=== PATIENT | female | born 2000 | race Caucasian/White ===

== ENCOUNTER → 2020-07-21 18:22 | Outpatient (CLI) | payer MEDICAID, SELFPAY ==
[2020-07-21 18:48] LABS: Basophils # 0.1 K/mm3 (0-0.2); Basophils % 0.6 % (0.1-2.0); Eosinophils # 0.1 K/mm3 (0.0-0.4); Eosinophils % 0.7 % (0.1-12.0); Hematocrit 40.5 % (37.0-47.0); Hemoglobin 13.1 g/dL (12.2-16.2); Lymphocytes # 2.8 K/mm3 (0.7-4.5); Lymphocytes % 24.8 % (10-50); Mean Corpuscular HGB Conc 32.3 g/dL (31.8-35.4); Mean Corpuscular Hemoglobin 26.8 pg (27.0-31.2); Mean Platelet Volume 7.7 fl (7.4-10.4); Monocytes # 0.7 K/mm3 (0.1-1.0); Neutrophils # 7.8 K/mm3 (1.8-7.8); Neutrophils % 67.9 % (37.0-80.0); Platelet Count 423 K/mm3 (142-424); Red Blood Count 4.88 M/mm3 (4.20-5.40); Red Cell Distribution Width 13.3 % (11.5-17.5); White Blood Count 11.4 K/mm3 (4.5-13.0)
[2020-07-21 19:11] LABS: 25-OH Vitamin D, Total 16.8 ng/mL (30-100)
[2020-07-21 19:12] LABS: Free T4 (Free Thyroxine) 1.04 ng/dl (0.78-2.19)
[2020-07-21 20:04] LABS: Alanine Aminotransferase 17 U/L (12-78); Albumin Level 4.6 g/dl (3.5-5.0); Albumin/Globulin Ratio 1.3 (1.1-1.8); Alkaline Phosphatase 87 U/L (38-126); Anion Gap 11.5 mEq/L (5-15); Aspartate Amino Transferase 27 U/L (14-36); Bilirubin,Total 0.6 mg/dl (0.2-1.3); Blood Urea Nitrogen 15 mg/dl (7-17); Calcium 9.8 mg/dl (8.4-10.2); Carbon Dioxide 28 mmol/L (22.0-30.0); Chloride 104 mmol/L (98-107); Chol/HDL Ratio 4.3 (1-3.5); Cholesterol 172 mg/dl (140-200); Estimated Glomerular Filt Rate 129 ml/min (>60); GFR (African American) 156 ML/MIN (>60); Globulin 3.5 g/dL (1.3-3.2); Glucose 90 mg/dl (74-100); HDL Cholesterol 40 mg/dl (40-60); Potassium 4.5 mmoL/L (3.5-5.1); Sodium 139 mmol/L (136-145); Total Protein,Serum 8.1 g/dl (6.3-8.2); Triglycerides 119 mg/dl (30-150); VLDL Cholesterol 24 mg/dL (0-40)
[2020-07-21 20:15] LABS: Direct LDL Cholesterol 97.19 mg/dL (100-129)
[2020-07-21 20:35] LABS: Thyroid Stimulating Hormone 1.81 uIU/mL (0.465-4.68)
== END ==
PROVIDERS: Visit Provider Emergency Medicine
DX: Z00.00 Encounter for general adult medical examination without abnormal findings (principal); E66.01 Morbid (severe) obesity due to excess calories; N91.2 Amenorrhea, unspecified; Z68.43 Body mass index [BMI] 50.0-59.9, adult; Z83.3 Family history of diabetes mellitus; E55.9 Vitamin D deficiency, unspecified
CPT/HCPCS: 80053; 80061; 82306; 83036; 84439; 84443; 85025

== ENCOUNTER 2020-07-21 23:50 | Emergency (ER) | payer MEDICAID, SELFPAY ==
[2020-07-21 23:51] VITALS: BP 125/75; PULSE 102; RESP 16; TEMP 37.2; O2SAT 98; BMI 52.6
--- NOTE | 2020-07-22 00:04 | HMH.EDHA ---
ED Disposition Clinical Impression: Headache Qualifiers: Headache type: tension-type Headache chronicity pattern: acute headache Intractability: not intractable Qualified Code(s): G44.209 - Tension-type headache, unspecified, not intractable Disposition: Home, Self-Care Condition on Discharge: Good Instructions: DI for Headache Additional Instructions: Return to the ED for any new or worsening symptoms including persistent vomiting, weakness, difficulty walking. Referrals: Benito Robins MD [Primary Care Provider] - Time of Disposition: :20 - Critical Care Critical Care Time: No Attestation: On , the high probability of a clinically significant, sudden or life threatening deterioration of the following system(s) required my full and direct attention, intervention and personal management. The time I documented below is in addition to time spent performing reported procedures but includes the following listed in this critical care notation. Medical Decision Making - Medical Records Medical records reviewed: Yes: I reviewed the patient's medical records. - Juan M Inquiry Pt receiving controlled substance: No Vital Signs: 07/21/20 23:51 Temperature 99.0 F Temperature Source Oral Pulse Rate [Left Radial] 102 H Respiratory Rate 16 Blood Pressure [Right Arm] 125/75 Blood Pressure Mean [Right Arm] 91 Blood Pressure Source [Right Arm] Automatic Cuff Blood Pressure Position [Right Arm] Supine 02 Sat by Pulse Oximetry 98 Oxygen Delivery Method Room Air - Lab Data Lab Results 07/22/20 00:05: Urine Color Yellow, Urine Appearance Sl cloudy, Urine pH 6.5, Ur Specific Butterfield 1.025, Urine Protein Negative, Urine Glucose (UA) Negative, Urine Ketones Negative, Urine Blood Negative, Urine Nitrate Negative, Urine Bilirubin Negative, Urine Urobilinogen 0.2, Ur Leukocyte Esterase Negative, Urine WBC 3-5, Ur Squamous Epith Cells 10-20 07/22/20 00:05: Urine HCG, Qual Negative Orders (Tests/Meds): ED MEDICATIONS Generic Name Dose Route Start Last Admin Trade Name Freq PRN Reason Stop Dose Admin Lactated Ringer's 1,000 mls @ 999 mls/hr 07/22/20 00:15 07/22/20 00:28 Lactated Ringer's 1000 Ml Bag IV 07/22/20 01:15 999 mls/hr .Q1H1M WILLIAM Administration Discontinued Medications Generic Name Dose Route Start Last Admin Trade Name Freq PRN Reason Stop Dose Admin Diphenhydramine HCl 25 mg 07/22/20 00:07 07/22/20 00:28 Diphenhydramine 50mg/Ml Vial IV 07/22/20 00:08 25 mg ONCE ONE Administration Ketorolac Tromethamine 30 mg 07/22/20 00:07 07/22/20 00:28 Ketorolac 30mg/Ml Vial IV 07/22/20 00:08 30 mg ONCE ONE Administration Prochlorperazine Edisylate 10 mg 07/22/20 00:07 07/22/20 00:28 Prochlorperazine 10mg/2ml Vial IV 07/22/20 00:08 10 mg ONCE ONE Administration Medical Decision Narrative: 19-year-old female with a history of headaches who presents with a frontal headache for the past several hours of gradual onset. With an additional complaint of weakness will be evaluated for urinalysis to rule out urinary tract infection. No concern for meningitis or subarachnoid hemorrhage based on history and exam. Nonfocal neurologic exam. She will be given a migraine cocktail including 10 mg IV Compazine, 30 mg IV Toradol, 25 mg IV Benadryl and IV fluid bolus 1 L. Following these interventions she was reevaluated with resolution of symptoms feeling much better and ready to go home. She was given appropriate return precautions and discharged in good condition. Headache HPI - General Chief Complaint: Headache Stated Complaint: Weakness and Headache Time Seen by Provider: 07/21/20 23:55 Mode of Arrival: Ambulatory Source of Information: Patient Limitations: No Limitations - History of Present Illness HPI Narrative: 19-year-old female who presents with frontal headache that started over the last few hours and has been constant moderate severity with sensitivity to lig
--- NOTE | 2020-07-22 00:08 | PC.NURSE ---
vision : Rt at 10 ft - 20/40 Lt at 10ft - 20/40 Both at 10 ft - 20/30
[2020-07-22 00:21] VITALS: BP 123/75; PULSE 73; RESP 16; O2SAT 98
[2020-07-22 00:22] LABS: Microscopic, Urine URINE MICROSCOPIC (MICROSCOPIC)
[2020-07-22 00:27] LABS: Appearance,Urine SL CLOUDY (Clear); Bilirubin,Urine Negative (Negative); Blood, Urine Negative (Negative); Color,Urine YELLOW (Yellow); Glucose,Urine (UA) Negative (Negative); Ketones,Urine Negative (Negative); Leukocyte Esterase,Urine Negative (Negative); Nitrate,Urine Negative (Negative); PH,Urine 6.5 (5.0-8.5); Protein,Urine Negative (Negative); Specific Gravity, Urine 1.025 (1.005-1.030); Urobilinogen,Urine 0.2 EU/dl (0.2)
[2020-07-22 00:28] LABS: Urine Pregnancy, HCG Qual. Negative (Negative)
--- NOTE | 2020-07-22 00:38 | PC.NURSE ---
patient was given a blanket and lights dimmed for comfort. boyfriend at bedside and will raise rail if he leaves. cb in reach at all times.
[2020-07-22 00:51] VITALS: BP 124/71; PULSE 76; RESP 16; O2SAT 100
[2020-07-22 01:18] VITALS: BP 140/91; BP 142/71; PULSE 79; PULSE 81; RESP 16; RESP 18; TEMP 36.9; O2SAT 98; O2SAT 99
== END 2020-07-22 02:01 | disposition home or self-care (01) ==
PROVIDERS: Emergency Provider Student in an Organized Health Care Education/Training Program; PCP Emergency Medicine
DX: G44.209 Tension-type headache, unspecified, not intractable (principal); F41.8 Other specified anxiety disorders
CPT/HCPCS: 81001; 81025; 96365; 96375; 99283

== ENCOUNTER → 2020-07-24 14:16 | Outpatient (CLI) | payer MEDICAID, SELFPAY ==
[2020-07-24 16:55] LABS: Thyroid Stimulating Hormone 1.56 uIU/mL (0.465-4.68)
[2020-07-26 14:58] LABS: Progesterone 0.4 ng/mL (.)
== END ==
PROVIDERS: Visit Provider Obstetrics & Gynecology
DX: R09.89 Other specified symptoms and signs involving the circulatory and respiratory systems (principal)
CPT/HCPCS: 36415; 84144; 84443

== ENCOUNTER 2020-07-27 12:59 | Outpatient (RCR) | payer MEDICAID, SELFPAY ==
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
== END 2020-07-27 13:00 | disposition home or self-care (01) ==
LOC: PT 12:59
PROVIDERS: PCP Emergency Medicine; Visit Provider Emergency Medicine
DX: M54.9 Dorsalgia, unspecified (principal)
CPT/HCPCS: 97163

== ENCOUNTER 2020-08-13 21:51 | Emergency (ER) | payer MEDICAID, SELFPAY ==
[2020-08-13 21:54] VITALS: BP 125/78; PULSE 84; RESP 18; TEMP 36.8; O2SAT 100; BMI 53.2
--- NOTE | 2020-08-13 22:05 | XR_ITS ---
PROCEDURE: XR CHEST 2V CLINICAL HISTORY: chest pain COMPARISON: CR CXR CHEST(2 VIEWS-NOT PORTABLE) from 11/21/2011 CR CXR CHEST(2 VIEWS-NOT PORTABLE) from 06/10/2012 CR CXR2 CHEST-AP VIEW ONLY from 04/03/2013 FINDINGS: The cardiomediastinal silhouette and pulmonary vascularity are within normal limits. There is mild fullness of the right hilum possibly due to underlying vasculature. Stability may be confirmed with follow-up The lungs are clear without infiltrates, suspicious nodules, or pleural effusions. No acute bony abnormalities. IMPRESSION: Mild fullness right hilum otherwise negative, Dictated by: Melivn Agosto MD 08/14/2020 05:18 Melvin Agosto MD in [facility] 08/14/2020 05:18
--- NOTE | 2020-08-13 22:05 | ECG_ITS ---
APPROVED REPORT Exam: Resting ECG HR:77 bpm ECG Measurements Heart Rate 77 AXES NE 146 P 17 QRSd 88 QRS 56 QT 366 T 41 QTc 414 Conclusion Normal sinus rhythm with sinus arrhythmia Normal ECG Electronically signed by : Kevyn Eisenberg, 08/14/2020 17:21:34
[2020-08-13 22:20] LABS: Basophils # 0.1 K/mm3 (0-0.2); Basophils % 0.5 % (0.1-2.0); Eosinophils # 0.1 K/mm3 (0.0-0.4); Eosinophils % 0.7 % (0.1-12.0); Hematocrit 41.9 % (37.0-47.0); Hemoglobin 13.4 g/dL (12.2-16.2); Lymphocytes # 3.5 K/mm3 (0.7-4.5); Lymphocytes % 22.1 % (10-50); Mean Corpuscular Hemoglobin 26.6 pg (27.0-31.2); Mean Corpuscular Volume 82.9 fl (81-99); Mean Platelet Volume 7.5 fl (7.4-10.4); Monocytes # 0.8 K/mm3 (0.1-1.0); Monocytes % 4.9 % (1.7-9.3); Neutrophils # 11.5 K/mm3 (1.8-7.8); Neutrophils % 71.8 % (37.0-80.0); Platelet Count 393 K/mm3 (142-424); Red Blood Count 5.05 M/mm3 (4.20-5.40); Red Cell Distribution Width 13.3 % (11.5-17.5)
[2020-08-13 22:21] LABS: MANUAL DIFFERENTIAL MANUAL DIFFERENTIAL (MANUAL DIFF)
--- NOTE | 2020-08-13 22:23 | HMH.EDANX ---
ED Disposition Clinical Impression: Atypical chest pain Disposition: Home, Self-Care Condition on Discharge: Good Instructions: DI for Atypical Chest Pain Additional Instructions: call pcp for follow up Referrals: Benito Robins MD [Primary Care Provider] - - Critical Care Critical Care Time: No Attestation: On 08/13/20, the high probability of a clinically significant, sudden or life threatening deterioration of the following system(s) required my full and direct attention, intervention and personal management. The time I documented below is in addition to time spent performing reported procedures but includes the following listed in this critical care notation. Medical Decision Making - Medical Records Medical records reviewed: Yes: I reviewed the patient's medical records. - Juan M Inquiry Pt receiving controlled substance: No Vital Signs: 08/13/20 21:54 Temperature 98.2 F Temperature Source Oral Pulse Rate [Right] 84 Respiratory Rate 18 Blood Pressure [Right Arm] 125/78 Blood Pressure Mean [Right Arm] 93 Blood Pressure Source [Right Arm] Automatic Cuff Blood Pressure Position [Right Arm] Supine 02 Sat by Pulse Oximetry 100 Oxygen Delivery Method Room Air - Lab Data Lab results reviewed: Yes: I reviewed the patient's lab results. Lab Results 08/13/20 21:50: WBC 16.0 H, RBC 5.05, Hgb 13.4, Hct 41.9, MCV 82.9, MCH 26.6 L, MCHC 32.0, RDW 13.3, Plt Count 393, MPV 7.5, Neut % (Auto) 71.8, Lymph % (Auto) 22.1, Dundy % (Auto) 4.9, Eos % (Auto) 0.7, Baso % (Auto) 0.5, Neut # (Auto) 11.5 H, Lymph # (Auto) 3.5, Dundy # (Auto) 0.8, Eos # (Auto) 0.1, Baso # (Auto) 0.1, Total Counted 100, Neutrophils % (Manual) 79 H, Band Neutrophils % 2.0, Lymphocytes % (Manual) 16, Monocytes % (Manual) 2, Eosinophils % (Manual) 1, Platelet Estimate Normal, RBC Morphology Normal, Rouleaux 1+, ESR 23 H 08/13/20 21:50: Sodium 139, Potassium 3.8, Chloride 104, Carbon Dioxide 26, Anion Gap 12.8, BUN 15, Creatinine 0.80, Estimated Creat Clear 110, Estimated GFR 92, Est GFR ( Amer) 112, Glucose 94, Calcium 9.7, Total Bilirubin 0.3, Direct Bilirubin 0.0, Conjugated Bilirubin 0.0, Indirect Bilirubin 0.3, Unconjugated Bilirubin 0.3, AST 25, ALT 17, Alkaline Phosphatase 89, Troponin I < 0.01, C-Reactive Protein 8.1 H, Total Protein 8.5 H, Albumin 4.8, Procalcitonin < 0.030 08/13/20 21:50: Serum HCG, Qual Negative Result diagrams: 08/13/20 21:50 08/13/20 21:50 Orders (Tests/Meds): ED MEDICATIONS Generic Name Dose Route Start Last Admin Trade Name Freq PRN Reason Stop Dose Admin Sodium Chloride 1,000 mls @ 999 mls/hr 08/13/20 22:15 08/13/20 22:48 Sod Chlor 0.9% 1000ml Bag IV 08/13/20 23:15 999 mls/hr .Q1H1M WILLIAM Administration Discontinued Medications Generic Name Dose Route Start Last Admin Trade Name Freq PRN Reason Stop Dose Admin Ketorolac Tromethamine 30 mg 08/13/20 22:44 08/13/20 22:48 Ketorolac 30mg/Ml Vial IV 08/13/20 22:45 30 mg ONCE ONE Administration ORDERS Category Date Time Status XR chest 2V Stat Exams 08/13/20 22:05 Taken Troponin I Q3H Lab 08/14/20 01:15 Ordered Troponin I Q3H Lab 08/14/20 04:15 Ordered - Radiology Data #1 Image(s): Chest Image Reviewed: Yes I reviewed the patient's radiology image Preliminary Findings: Normal/NAD - ECG Data Tracing #1 Normal Sinus Rhythm: Yes Ischemic changes: non-specific ST-T wave changes - BUDDY Score for Non-Stemi Age of Patient: <30 years old Heart Rate: 70-89 bpm Systolic Blood Pressure: 120-139 mmhg Serum Creatinine: 0.80-1.19 mg/dl CHF Killip Class: I-No CHF Other Risk Factors: None Non-Stemi Risk Score: 50 Medical Decision Narrative: atypical chest pain with neg eval and will ask pt to see pcp for follow up - low risk for cardiac disease Anxiety HPI - General Chief Complaint: Anxiety Stated Complaint: Chest Pain Time Seen by Provider: 08/13/20 22:05 Mode of Arrival: EMS Source of Info
[2020-08-13 22:31] LABS: Alanine Aminotransferase 17 U/L (12-78); Albumin Level 4.8 g/dl (3.5-5.0); Alkaline Phosphatase 89 U/L (38-126); Anion Gap 12.8 mEq/L (5-15); Aspartate Amino Transferase 25 U/L (14-36); Bilirubin,Indirect 0.3 mg/dL (0.0-0.9); Bilirubin,Total 0.3 mg/dl (0.2-1.3); Bilirubin,Unconjugated 0.3 mg/dL (0.0-1.1); Blood Urea Nitrogen 15 mg/dl (7-17); Calcium 9.7 mg/dl (8.4-10.2); Carbon Dioxide 26 mmol/L (22.0-30.0); Chloride 104 mmol/L (98-107); Creatinine Clearance Estimated 110 mL/min (50-200); Estimated Glomerular Filt Rate 92 ml/min (>60); GFR (African American) 112 ML/MIN (>60); Glucose 94 mg/dl (74-100); Potassium 3.8 mmoL/L (3.5-5.1); Sodium 139 mmol/L (136-145); Total Protein,Serum 8.5 g/dl (6.3-8.2)
[2020-08-13 22:36] LABS: HCG Qualitative, Serum Negative (Negative)
[2020-08-13 22:37] LABS: C-Reactive Protein 8.1 mg/L (0-4)
[2020-08-13 22:41] LABS: Eosinophils % 1 % (0-3); Lymphocytes % 16 % (10-50); Monocytes % 2 % (2-9); Neutrophils % 79 % (42-76); Platelet Estimate Normal; RBC Morphology Normal; Rouleaux 1+; Total Cells Counted 100
[2020-08-13 22:53] LABS: Erythrocyte Sedimentation Rate 23 mm/hr (0-20)
[2020-08-13 22:54] LABS: Procalcitonin < 0.030 ng/mL (0.0-2.0); Troponin I < 0.01 ng/ml (0.00-0.034)
[2020-08-13 23:59] VITALS: BP 130/74; PULSE 76; RESP 16; TEMP 36.8; O2SAT 98
== END 2020-08-14 00:02 | disposition home or self-care (01) ==
PROVIDERS: Emergency Provider Emergency Medicine; PCP Emergency Medicine
DX: R07.89 Other chest pain (principal); F41.9 Anxiety disorder, unspecified; G43.709 Chronic migraine without aura, not intractable, without status migrainosus; E66.01 Morbid (severe) obesity due to excess calories; Z68.43 Body mass index [BMI] 50.0-59.9, adult; Z88.0 Allergy status to penicillin
CPT/HCPCS: 71046; 80048; 80076; 84145; 84484; 84703; 85007; 85025; 85651; 86140; 93005; 96365; 96375; 99282

== ENCOUNTER 2021-03-14 16:00 | Outpatient (RCR) | payer MEDICAID, SELFPAY ==
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
== END 2021-03-14 16:05 | disposition home or self-care (01) ==
LOC: PT 16:00
PROVIDERS: Visit Provider Emergency Medicine
DX: M54.9 Dorsalgia, unspecified (principal); M54.50 Low back pain, unspecified
CPT/HCPCS: 97010; 97014; 97110; 97163; G0283

== ENCOUNTER 2021-05-11 19:50 | Emergency (ER) | payer MEDICAID, SELFPAY ==
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
[2021-05-11 20:09] VITALS: BP 145/91; PULSE 114; RESP 16; TEMP 36.8; O2SAT 97; BMI 45.6
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
[2021-05-11 21:34] LABS: Basophils # 0.1 K/mm3 (0-0.2); Basophils % 0.9 % (0.1-2.0); Eosinophils # 0.1 K/mm3 (0.0-0.4); Eosinophils % 1.1 % (0.1-12.0); Hematocrit 45.1 % (37.0-47.0); Hemoglobin 14.9 g/dL (12.2-16.2); Lymphocytes % 26.3 % (10-50); Mean Corpuscular HGB Conc 33.1 g/dL (31.8-35.4); Mean Corpuscular Hemoglobin 27.3 pg (27.0-31.2); Mean Corpuscular Volume 82.5 fl (81-99); Mean Platelet Volume 7.9 fl (7.4-10.4); Monocytes # 0.7 K/mm3 (0.1-1.0); Monocytes % 5.7 % (1.7-9.3); Neutrophils # 7.5 K/mm3 (1.8-7.8); Neutrophils % 65.9 % (37.0-80.0); Platelet Count 418 K/mm3 (142-424); Red Blood Count 5.46 M/mm3 (4.20-5.40); Red Cell Distribution Width 13.1 % (11.5-17.5); White Blood Count 11.4 K/mm3 (4.5-13.0)
[2021-05-11 21:40] LABS: Blood Urea Nitrogen 14 mg/dl (7-17); Carbon Dioxide 28 mmol/L (22.0-30.0); Chloride 103 mmol/L (98-107); Sodium 139 mmol/L (136-145)
[2021-05-11 21:41] LABS: Calcium 9.9 mg/dl (8.4-10.2); Creatinine Clearance Estimated 129 mL/min (50-200); Estimated Glomerular Filt Rate 107 ml/min (>60); GFR (African American) 129 ML/MIN (>60); Glucose 98 mg/dl (74-100); Lipase 60 U/L (23-300)
[2021-05-11 21:43] LABS: Urine Pregnancy, HCG Qual. Negative (Negative)
--- NOTE | 2021-05-11 22:14 | PC.NURSE ---
officer lila came in to file report [id number]
[2021-05-12 00:05] VITALS: BP 119/77; PULSE 97; RESP 18; TEMP 36.8; O2SAT 98
== END 2021-05-12 00:07 | disposition home or self-care (01) ==
PROVIDERS: Emergency Provider Emergency Medicine; PCP Emergency Medicine
DX: S06.0X0A Concussion without loss of consciousness, initial encounter (principal); S33.5XXA Sprain of ligaments of lumbar spine, initial encounter; S63.501A Unspecified sprain of right wrist, initial encounter; Y04.2XXA Assault by strike against or bumped into by another person, initial encounter; Y92.019 Unspecified place in single-family (private) house as the place of occurrence of the external cause; F41.8 Other specified anxiety disorders; G43.709 Chronic migraine without aura, not intractable, without status migrainosus
CPT/HCPCS: 70450; 71046; 72125; 72128; 72131; 72190; 73110; 74177; 80048; 81025; 83690; 85025; 99283; Q9967

== ENCOUNTER 2021-07-29 02:17 | Emergency (ER) | payer MEDICAID, SELFPAY ==
[2021-07-29 02:13] VITALS: BP 218/102; PULSE 112; RESP 18; TEMP 36.6; O2SAT 97; BMI 46.6
[2021-07-29 02:22] VITALS: BMI 46.6
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
[2021-07-29 02:37] LABS: Basophils # 0.2 K/mm3 (0-0.2); Basophils % 1.7 % (0.1-2.0); Eosinophils # 0.2 K/mm3 (0.0-0.4); Eosinophils % 1.6 % (0.1-12.0); Hematocrit 39.8 % (37.0-47.0); Hemoglobin 12.8 g/dL (12.2-16.2); Lymphocytes # 3.4 K/mm3 (0.7-4.5); Lymphocytes % 25.7 % (10-50); Mean Corpuscular HGB Conc 32.2 g/dL (31.8-35.4); Mean Corpuscular Hemoglobin 27.5 pg (27.0-31.2); Mean Corpuscular Volume 85.2 fl (81-99); Mean Platelet Volume 7.8 fl (7.4-10.4); Monocytes # 0.9 K/mm3 (0.1-1.0); Neutrophils # 8.5 K/mm3 (1.8-7.8); Neutrophils % 63.8 % (37.0-80.0); Platelet Count 380 K/mm3 (142-424); Red Blood Count 4.67 M/mm3 (4.20-5.40); Red Cell Distribution Width 13.5 % (11.5-17.5); White Blood Count 13.3 K/mm3 (4.5-13.0)
[2021-07-29 02:45] LABS: Alanine Aminotransferase 18 U/L (12-78); Albumin Level 4.1 g/dl (3.5-5.0); Albumin/Globulin Ratio 1.4 (1.1-1.8); Alkaline Phosphatase 74 U/L (38-126); Anion Gap 11.8 mEq/L (5-15); Aspartate Amino Transferase 21 U/L (14-36); Bilirubin,Total 0.5 mg/dl (0.2-1.3); Blood Urea Nitrogen 14 mg/dl (7-17); Calcium 8.6 mg/dl (8.4-10.2); Carbon Dioxide 24 mmol/L (22.0-30.0); Chloride 105 mmol/L (98-107); Creatinine Clearance Estimated 145 mL/min (50-200); Estimated Glomerular Filt Rate 127 ml/min (>60); GFR (African American) 154 ML/MIN (>60); Glucose 102 mg/dl (74-100); Potassium 3.8 mmoL/L (3.5-5.1); Sodium 137 mmol/L (136-145); Total Protein,Serum 7.1 g/dl (6.3-8.2)
[2021-07-29 02:46] LABS: HCG Qualitative, Serum Positive (Negative)
[2021-07-29 02:51] LABS: C-Reactive Protein 8.3 mg/L (0-4)
[2021-07-29 03:04] LABS: Procalcitonin 0.037 ng/mL (0.0-2.0)
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
[2021-07-29 03:09] LABS: Erythrocyte Sedimentation Rate 39 mm/hr (0-20)
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
[2021-07-29 03:10] LABS: Microscopic, Urine URINE MICROSCOPIC (MICROSCOPIC)
[2021-07-29 03:14] LABS: HCG,Quantitative 174 mIU/ml (0-5.42)
[2021-07-29 03:15] VITALS: BP 130/90; PULSE 122; RESP 18; TEMP 36.8; O2SAT 98
[2021-07-29 03:16] LABS: Appearance,Urine SL CLOUDY (Clear); Bilirubin,Urine Negative (Negative); Blood, Urine Negative (Negative); Color,Urine YELLOW (Yellow); Glucose,Urine (UA) Negative (Negative); Ketones,Urine Negative (Negative); Leukocyte Esterase,Urine Negative (Negative); Nitrate,Urine Negative (Negative); Protein,Urine Negative (Negative); Specific Gravity, Urine >= 1.030 (1.005-1.030); Urobilinogen,Urine 0.2 EU/dl (0.2)
[2021-07-29 03:20] LABS: Amorphous Sediment,Urine 1+ /lpf; Bacteria,Urine Trace /lpf
[2021-07-29 03:26] LABS: Barbiturates Screen,Urine Negative ng/ml (<200); Benzodiazepines Screen,Urine Negative ng/ml (<200)
[2021-07-29 03:28] LABS: Cannabinoid Screen,Urine Negative ng/ml (<50); Cocaine Screen,Urine Negative ng/ml (<300)
[2021-07-29 03:29] LABS: Methadone Screen,Urine Negative ng/ml (<300)
[2021-07-29 03:30] LABS: Opiate Screen,Urine Negative ng/ml (<300); Phencyclidine Screen,Urine Negative ng/ml (<25)
[2021-07-29 04:06] LABS: Amphetamine/Metha Screen,Urine Positive ng/ml (<1000)
[2021-07-29 04:57] VITALS: BP 185/88; PULSE 98; RESP 20; TEMP 36.8
== END 2021-07-29 05:10 | disposition home or self-care (01) ==
PROVIDERS: Emergency Provider Emergency Medicine; PCP Emergency Medicine
DX: S06.0X0A Concussion without loss of consciousness, initial encounter (principal); S00.83XA Contusion of other part of head, initial encounter; S20.219S Contusion of unspecified front wall of thorax, sequela; R07.81 Pleurodynia; R89.2 Abnormal level of other drugs, medicaments and biological substances in specimens from other organs, systems and tissues; G43.909 Migraine, unspecified, not intractable, without status migrainosus; Z79.84 Long term (current) use of oral hypoglycemic drugs; Z79.899 Other long term (current) drug therapy; Z88.0 Allergy status to penicillin; Z91.018 Allergy to other foods; Z87.891 Personal history of nicotine dependence; Z88.3 Allergy status to other anti-infective agents; Z80.9 Family history of malignant neoplasm, unspecified; Z81.8 Family history of other mental and behavioral disorders; W21.11XA Struck by baseball bat, initial encounter; Y92.009 Unspecified place in unspecified non-institutional (private) residence as the place of occurrence of the external cause; Z3A.01 Less than 8 weeks gestation of pregnancy
CPT/HCPCS: 70150; 71046; 76817; 80053; 80305; 81001; 84145; 84702; 84703; 85025; 85651; 86140; 96361; 96365; 96374; 99285

== ENCOUNTER → 2021-08-01 16:56 | Outpatient (CLI) | payer MEDICAID, SELFPAY ==
[2021-08-01 20:06] LABS: HCG,Quantitative 790 mIU/ml (0-5.42)
== END ==
PROVIDERS: PCP Obstetrics & Gynecology; Visit Provider Nurse Practitioner Obstetrics & Gynecology
DX: Z32.00 Encounter for pregnancy test, result unknown (principal)
CPT/HCPCS: 36415; 84702

== ENCOUNTER → 2021-08-06 15:35 | Outpatient (CLI) | payer MEDICAID, SELFPAY ==
[2021-08-06 17:45] LABS: HCG,Quantitative 3874 mIU/ml (0-5.42)
[2021-08-08 09:14] LABS: Progesterone 6.4 ng/mL (.)
== END ==
PROVIDERS: Visit Provider Obstetrics & Gynecology
DX: Z34.90 Encounter for supervision of normal pregnancy, unspecified, unspecified trimester (principal)
CPT/HCPCS: 36415; 84144; 84702

== ENCOUNTER → 2021-08-15 12:33 | Outpatient (CLI) | payer MEDICAID, SELFPAY ==
--- NOTE | 2021-08-15 12:34 | US_ITS ---
FINAL REPORT CLINICAL HISTORY: Dates FINDINGS: Sonographic images of the pelvis were obtained. A single, living intrauterine is noted. A yolk sac is present and measures 6 mm. [place] to rump length measures 7 mm which corresponds to 6 weeks 4 days gestation. Heartbeat is identified and measures 118 beats per minute. The right ovary is within normal limits. The left ovary is within normal limits. IMPRESSION: Single, living, intrauterine gestation with 6 weeks 4 days gestational age. Reviewed, Interpreted and Dictated by Jose Cody MD Transcribed by Renetta Cortez Authenticated by Jose Cody MD on 08/15/2021 03:23:[address] [facility]
== END ==
PROVIDERS: PCP Emergency Medicine; Visit Provider Obstetrics & Gynecology
DX: Z34.90 Encounter for supervision of normal pregnancy, unspecified, unspecified trimester (principal)
CPT/HCPCS: 76801

== ENCOUNTER → 2021-08-27 15:00 | Outpatient (CLI) | payer MEDICAID, SELFPAY ==
[2021-08-27 16:10] LABS: Basophils # 0.1 K/mm3 (0-0.2); Basophils % 0.5 % (0.1-2.0); Eosinophils # 0.1 K/mm3 (0.0-0.4); Eosinophils % 0.6 % (0.1-12.0); Hematocrit 38.8 % (37.0-47.0); Hemoglobin 12.7 g/dL (12.2-16.2); Lymphocytes # 1.9 K/mm3 (0.7-4.5); Lymphocytes % 10.7 % (10-50); Mean Corpuscular HGB Conc 32.7 g/dL (31.8-35.4); Mean Corpuscular Hemoglobin 28.1 pg (27.0-31.2); Monocytes % 5.5 % (1.7-9.3); Neutrophils # 14.6 K/mm3 (1.8-7.8); Neutrophils % 82.7 % (37.0-80.0); Platelet Count 377 K/mm3 (142-424); Red Blood Count 4.51 M/mm3 (4.20-5.40); Red Cell Distribution Width 13.4 % (11.5-17.5); White Blood Count 17.6 K/mm3 (4.5-13.0)
[2021-08-27 16:13] LABS: MANUAL DIFFERENTIAL MANUAL DIFFERENTIAL (MANUAL DIFF)
[2021-08-27 18:15] LABS: Eosinophils % 1 % (0-3); Lymphocytes % 9 % (10-50); Monocytes % 5 % (2-9); Neutrophils % 85 % (42-76); Nucleated Red Blood Cells 1; Total Cells Counted 100
[2021-08-27 18:16] LABS: Platelet Estimate Normal; RBC Morphology Normal
[2021-08-30 23:17] LABS: Neisseria gonorrhoeae, NAA Negative (Negative)
== END ==
PROVIDERS: PCP Emergency Medicine; Visit Provider Obstetrics & Gynecology
DX: Z34.90 Encounter for supervision of normal pregnancy, unspecified, unspecified trimester (principal)
CPT/HCPCS: 36415; 85007; 85025; 86850; 87491; 87591

== ENCOUNTER → 2021-09-17 12:55 | Outpatient (CLI) | payer MEDICAID, SELFPAY ==
[2021-09-18 08:16] LABS: HIV Screen 4th Generation wRfx Non Reactive (Non Reactive); Progesterone 7.2 ng/mL (.)
[2021-09-18 09:15] LABS: Hepatitis B Surface Antigen Negative (Negative); Hepatitis C Antibody <0.1 s/co ratio (0.0-0.9)
[2021-09-18 13:11] LABS: Rapid Plasma Reagin Ab Titer Non Reactive (NonRea<1:1)
[2021-09-19 08:17] LABS: Rubella Antibodies, IgG 2.02 index (Immune >0.99)
== END ==
PROVIDERS: PCP Emergency Medicine; Visit Provider Obstetrics & Gynecology
DX: Z34.90 Encounter for supervision of normal pregnancy, unspecified, unspecified trimester (principal)
CPT/HCPCS: 36415; 84144; 86592; 86703; 86762; 87340; 87380; G0432

== ENCOUNTER → 2021-11-27 13:01 | Outpatient (CLI) | payer MEDICAID, SELFPAY ==
--- NOTE | 2021-11-27 13:06 | US_ITS ---
FINAL REPORT CLINICAL HISTORY: Ob complete FINDINGS: There is a single live intrauterine gestation. Presentation is cephalic. The cervix is closed and measures 4.2 cm. Placenta is anterior, high-grade 1. movement is noted. Rate is 149 beats per minute. Three-vessel cord with satisfactory umbilical cord insertion. Four-chamber heart is noted. ABDOMEN: Both kidneys are unremarkable. Stomach is unremarkable. SPINE: No anomalies identified. AMNIOTIC FLUID: Appropriate amount. MEASUREMENTS: ULTRASOUND AGE: 21 weeks 4 days. GESTATION AGE: 23 weeks 3 days. ESTIMATED WEIGHT: 436 g GROWTH PERCENTILE: 53 % BPD: 5.18 cm corresponding to 21 weeks 5 days. OFD: 6.62 cm corresponding to 21 weeks 6 days. HC: 18.67 cm corresponding to 21 weeks days. AC: 16.64 cm corresponding to 21 weeks 5 days. FL: 3.66 cm corresponding to 21 weeks 5 days. HC/AC: 0.12 CI: 78% FL/BPD: 71% FL/AC: 22% IMPRESSION: Single living IUP with an ultrasound age of 21 weeks 4 days. Reviewed, Interpreted and Dictated by Norbert Sow III, MD Transcribed by Judi Solis Authenticated and . [facility]
== END ==
PROVIDERS: PCP Emergency Medicine; Visit Provider Obstetrics & Gynecology
DX: Z34.90 Encounter for supervision of normal pregnancy, unspecified, unspecified trimester (principal)
CPT/HCPCS: 76811

== ENCOUNTER 2021-12-18 19:39 | Outpatient (CLI) | payer MEDICAID, SELFPAY ==
[2021-12-18 20:15] VITALS: BMI 46.5
[2021-12-18 20:23] LABS: Microscopic, Urine URINE MICROSCOPIC (MICROSCOPIC)
[2021-12-18 20:24] VITALS: BP 123/83; PULSE 104; RESP 18; TEMP 36.5; O2SAT 99; BMI 46.5
[2021-12-18 20:46] LABS: Appearance,Urine CLEAR (Clear); Bilirubin,Urine Negative (Negative); Blood, Urine Negative (Negative); Color,Urine DK YELLOW (Yellow); Fetal Membrane Rupture (Rapid) Negative (Negative); Glucose,Urine (UA) Negative (Negative); Ketones,Urine 1+ (Negative); Leukocyte Esterase,Urine 1+ (Negative); Nitrate,Urine Negative (Negative); Protein,Urine Negative (Negative); Specific Gravity, Urine 1.025 (1.005-1.030)
[2021-12-18 20:58] LABS: Barbiturates Screen,Urine Negative ng/ml (<200); Benzodiazepines Screen,Urine Negative ng/ml (<200)
[2021-12-18 20:59] LABS: Cocaine Screen,Urine Negative ng/ml (<300)
[2021-12-18 21:00] LABS: Methadone Screen,Urine Negative ng/ml (<300)
[2021-12-18 21:01] LABS: Cannabinoid Screen,Urine Negative ng/ml (<50); Opiate Screen,Urine Negative ng/ml (<300)
[2021-12-18 21:02] LABS: Phencyclidine Screen,Urine Negative ng/ml (<25)
[2021-12-18 21:10] LABS: Bacteria,Urine 1+ /lpf
[2021-12-18 21:27] LABS: Amphetamine/Metha Screen,Urine Positive ng/ml (<1000)
== END 2021-12-18 22:20 | disposition home or self-care (01) ==
LOC: OBOUT 19:42 → OB 19:42
PROVIDERS: PCP Obstetrics & Gynecology; Visit Provider Obstetrics & Gynecology
DX: O47.02 False labor before 37 completed weeks of gestation, second trimester (principal); Z3A.24 24 weeks gestation of pregnancy
CPT/HCPCS: 80305; 81001; 84112; 87086; 94761; 96365; G0283; G0463

== ENCOUNTER → 2021-12-21 06:43 | Outpatient (CLI) | payer MEDICAID, SELFPAY ==
[2021-12-25 20:18] LABS: Neisseria gonorrhoeae, NAA Negative (Negative)
== END ==
PROVIDERS: Visit Provider Obstetrics & Gynecology
DX: Z34.90 Encounter for supervision of normal pregnancy, unspecified, unspecified trimester (principal); O98.819 Other maternal infectious and parasitic diseases complicating pregnancy, unspecified trimester; Z3A.24 24 weeks gestation of pregnancy
CPT/HCPCS: 87491; 87591

== ENCOUNTER → 2022-02-11 06:25 | Outpatient (CLI) | payer MEDICAID, SELFPAY ==
[2022-02-13 22:10] LABS: Neisseria gonorrhoeae, NAA Negative (Negative)
== END ==
PROVIDERS: Visit Provider Obstetrics & Gynecology
DX: Z34.90 Encounter for supervision of normal pregnancy, unspecified, unspecified trimester (principal)
CPT/HCPCS: 87491; 87591

== ENCOUNTER → 2022-02-15 11:02 | Outpatient (CLI) | payer MEDICAID, SELFPAY ==
--- NOTE | 2022-02-15 11:02 | US_ITS ---
FINAL REPORT CLINICAL HISTORY: LGA FINDINGS: There is a single live intrauterine gestation. Presentation is cephalic. Placenta is anterior. Cardiac activity is confirmed at 146 bpm. The fetus is active. The visualized anatomy is within normal limits. AMNIOTIC FLUID: Appropriate amount. 11.39 cm MEASUREMENTS: ULTRASOUND AGE: 33 weeks 5 days. GESTATION AGE: 32 weeks 6 days. ESTIMATED WEIGHT: 2240 g GROWTH PERCENTILE: 66% BPD: 8.4 cm consistent with 34 weeks 0 days. OFD: 10.7 cm consistent with 34 weeks 0 days. HC: 30.3 cm consistent with 33 weeks 5 days. AC: 30 cm consistent with 34 weeks 0 days. FL: 6.4 cm consistent with 33 weeks 0 days. HC/AC: 1.01 CI: 79% FL/BPD: 76% FL/AC: 21% IMPRESSION: Single living IUP with an ultrasound age of 33 weeks 5 days. Reviewed, Interpreted and Dictated by Jose Cody MD Transcribed by Terell Keane Authenticated and [facility]
== END ==
PROVIDERS: Visit Provider Obstetrics & Gynecology
DX: O36.60X0 Maternal care for excessive fetal growth, unspecified trimester, not applicable or unspecified (principal)
CPT/HCPCS: 76816

== ENCOUNTER → 2022-03-15 14:30 | Outpatient (CLI) | payer MEDICAID, SELFPAY | PROVIDERS: Visit Provider Obstetrics & Gynecology | DX: Z34.90 Encounter for supervision of normal pregnancy, unspecified, unspecified trimester (principal) | CPT/HCPCS: 86403; 87086 ==

== ENCOUNTER 2022-03-15 14:34 | Outpatient (CLI) | payer MEDICAID, SELFPAY ==
[2022-03-15 15:17] VITALS: BMI 32.8
[2022-03-15 15:46] LABS: Amphetamine/Metha Screen,Urine Negative ng/ml (<1000)
[2022-03-15 15:47] LABS: Barbiturates Screen,Urine Negative ng/ml (<200); Benzodiazepines Screen,Urine Negative ng/ml (<200)
[2022-03-15 15:48] LABS: Cannabinoid Screen,Urine Negative ng/ml (<50)
[2022-03-15 15:49] LABS: Cocaine Screen,Urine Negative ng/ml (<300); Methadone Screen,Urine Negative ng/ml (<300)
[2022-03-15 15:50] LABS: Opiate Screen,Urine Negative ng/ml (<300); Phencyclidine Screen,Urine Negative ng/ml (<25)
[2022-03-15 15:57] VITALS: BP 105/75; PULSE 96; RESP 17; TEMP 36.6; O2SAT 100; BMI 32.8
== END 2022-03-15 16:31 | disposition home or self-care (01) ==
LOC: OBOUT 14:37 → OB 14:39
PROVIDERS: PCP Emergency Medicine; Visit Provider Obstetrics & Gynecology
DX: O26.893 Other specified pregnancy related conditions, third trimester (principal); Z3A.36 36 weeks gestation of pregnancy; R10.9 Unspecified abdominal pain; R10.2 Pelvic and perineal pain
CPT/HCPCS: 59025; 80305; 96365; G0463

== ENCOUNTER 2022-07-01 17:40 | Emergency (ER) | payer MEDICAID, SELFPAY ==
--- NOTE | 2022-07-01 17:44 | HMH.EDGENADL ---
Discharge Plan Disposition Patient Disposition: Home, Self-Care Prescriptions Prescriptions: No Action Vraylar 1.5 mg capsule 1.5 mg PO DAILY Qty: 30 2RF Unisom (doxylamine) 25 mg tablet 25 mg PO HS PRN (Reason: sleep) Qty: 30 0RF Classic 28 mg iron- 800 mcg tablet 1 tab PO DAILY Qty: 30 11RF ondansetron 4 mg tablet,disintegrating 4 mg PO Q4H PRN (Reason: nausea and vomiting) Qty: 30 4RF ferrous sulfate 325 mg (65 mg iron) tablet 325 mg PO DAILY PRN (Reason: ) Qty: 30 11RF Referrals Follow up/Referrals: Provider,Referral, MD [Primary Care Provider] - See instructions Activity Restrictions/Add. Instructions Additional Instructions/Restrictions: Please follow-up with your [facility]YSICIANS ASSIST[facility] doctor as needed. Your urine test today was negative this is not consistent with a miscarriage and ectopic under the related condition at this point. If you continue to bleed through more than 1 pad per hour and are symptomatic from that please return to the emergency department. Clinical Impressions Clinical Impression: Dysfunctional uterine bleeding Discharge ED Provider: Jeremiah Lambert General Adult HPI General Chief complaint: Vaginal Bleeding Stated complaint: 2 months pp, cramping Time Seen by Provider: 07/01/22 17:44 History of Present Illness HPI narrative: The patient is a 21-year-old female 2 months status post vaginal delivery of healthy living child. She states that she has PCOS which she has been identified as the source of her numerous miscarriages in the past. She states that within the last month which was 1 month she had another miscarriage. She presents today with bright red bleeding per her vagina over the last hour and a half with some crampy pain associated with this. She has bled through 2 pads in the last hour and a half she states. She denies any other symptoms including lightheadedness shortness of breath passage of any tissue etc. Pain is minimal at this point. Related Data Previous Rx's Medication Instructions Recorded ferrous sulfate 325 mg (65 mg 325 mg PO DAILY PRN #30 09/17/21 iron) tablet tabs ondansetron 4 mg disintegrating 4 mg PO Q4H PRN nausea and 09/17/21 tablet vomiting #30 tabs vits no.126-ferrous fum 1 tab PO DAILY #30 tabs 04/25/22 28 mg iron-folic acid 800 mcg tablet (Classic ) cariprazine 1.5 mg capsule 1.5 mg PO DAILY #30 caps 10/16/21 (Vraylar) doxylamine succinate 25 mg tablet 25 mg PO HS PRN sleep #30 tabs 10/16/21 (Unisom (doxylamine)) Allergies Allergy/AdvReac Type Severity Reaction Status Date / Time Penicillins Allergy Mild Throat Verified 03/15/22 14:00 swelling acetaminophen AdvReac Intermediate Vomiting Verified 03/15/22 14:00 ORANGE JUICE Allergy Unknown YEAST Uncoded 03/15/22 14:00 INFECTION AND RASH [facility] Disclaimer: The information contained in this section may have been updated after the patient was seen, as this information can be updated by other users. Medical History (Updated 07/01/22 @ 18:34 by Jeremiah Lambert MD) Anxiety and depression Back pain Bipolar disorder Insomnia Social History Smoking Status: Current every day smoker alcohol intake: current substance use type: denies use current occupational status: unemployed Travel in the last 8 weeks: None ROS Obtained: Yes All systems reviewed & no additional complaints except as documented Physical Exam General General appearance: alert and in no apparent distress Head Head exam: atraumatic and normocephalic Eye Eye exam: Present normal appearance, PERRL and EOMI ENT ENT exam: Present normal exam Chest Chest inspection: Present normal inspection and symmetric chest wall rise Respiratory Respiratory exam: Present normal lung sounds bilaterally; Absent respiratory distress Cardiovascular C
[2022-07-01 18:00] VITALS: BP 126/62; PULSE 94; RESP 17; TEMP 36.9; O2SAT 99; BMI 45.8
[2022-07-01 18:30] LABS: Urine Pregnancy, HCG Qual. Negative (Negative)
[2022-07-01 18:40] VITALS: BP 155/96; PULSE 90; RESP 18; TEMP 36.8; O2SAT 99
== END 2022-07-01 18:40 | disposition home or self-care (01) ==
PROVIDERS: Emergency Provider Student in an Organized Health Care Education/Training Program
DX: N93.9 Abnormal uterine and vaginal bleeding, unspecified (principal); F41.9 Anxiety disorder, unspecified; F31.9 Bipolar disorder, unspecified; G47.00 Insomnia, unspecified; F17.210 Nicotine dependence, cigarettes, uncomplicated
CPT/HCPCS: 81025; 99284

== ENCOUNTER → 2022-09-16 09:02 | Outpatient (CLI) | payer MEDICAID, SELFPAY ==
[2022-09-16 14:24] LABS: Barbiturates Screen,Urine Negative ng/ml (<200); Benzodiazepines Screen,Urine Negative ng/ml (<200)
[2022-09-16 14:25] LABS: Cannabinoid Screen,Urine Negative ng/ml (<50)
[2022-09-16 14:26] LABS: Cocaine Screen,Urine Negative ng/ml (<300); Methadone Screen,Urine Negative ng/ml (<300)
[2022-09-16 14:27] LABS: Opiate Screen,Urine Negative ng/ml (<300)
[2022-09-16 14:29] LABS: Phencyclidine Screen,Urine Negative ng/ml (<25)
[2022-09-16 18:25] LABS: Amphetamine/Metha Screen,Urine Positive ng/ml (<1000)
== END ==
PROVIDERS: PCP Physician Assistant
DX: Z79.899 Other long term (current) drug therapy (principal)
CPT/HCPCS: 80305

== ENCOUNTER 2022-10-09 02:12 | Emergency (ER) | payer MEDICAID, SELFPAY ==
[2022-10-09 02:14] VITALS: BP 152/97; PULSE 115; RESP 20; TEMP 37.1; O2SAT 97; BMI 45.6
[2022-10-09 02:23] LABS: Microscopic, Urine URINE MICROSCOPIC (MICROSCOPIC)
[2022-10-09 02:26] LABS: Appearance,Urine CLEAR (Clear); Bilirubin,Urine Negative (Negative); Blood, Urine 2+ (Negative); Color,Urine YELLOW (Yellow); Glucose,Urine (UA) Negative (Negative); Ketones,Urine Negative (Negative); Leukocyte Esterase,Urine Negative (Negative); Nitrate,Urine Negative (Negative); Protein,Urine Negative (Negative); Specific Gravity, Urine >= 1.030 (1.005-1.030)
[2022-10-09 02:38] LABS: Urine Pregnancy, HCG Qual. Negative (Negative)
[2022-10-09 02:39] LABS: Bacteria,Urine 1+ /lpf; Mucus,Urine 1+ /lpf; WBC,Urine Occasional #/hpf (0-3)
[2022-10-09 03:35] LABS: HCG Qualitative, Serum Negative (Negative)
[2022-10-09 04:00] VITALS: BP 142/89; PULSE 75; RESP 18; TEMP 37; O2SAT 98
== END 2022-10-09 04:01 | disposition left against medical advice (07) ==
LOC: ER 03:38
PROVIDERS: Emergency Provider Emergency Medicine; PCP Physician Assistant
DX: Z53.21 Procedure and treatment not carried out due to patient leaving prior to being seen by health care provider (principal)
CPT/HCPCS: 81001; 81025; 84703; 99211; J0131

== ENCOUNTER 2022-11-24 18:47 | Emergency (ER) | payer MEDICAID, SELFPAY ==
[2022-11-24 18:49] VITALS: BP 131/75; PULSE 111; RESP 16; TEMP 36.6; O2SAT 97; BMI 45.6
--- NOTE | 2022-11-24 19:06 | PC.NURSE ---
report handed off to security shift manager
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
[2022-11-24 19:22] VITALS: BP 128/71; PULSE 95; RESP 16; TEMP 36.6
== END 2022-11-24 19:24 | disposition home or self-care (01) ==
PROVIDERS: Emergency Provider Emergency Medicine; PCP Physician Assistant
DX: S05.92XA Unspecified injury of left eye and orbit, initial encounter (principal); W50.0XXA Accidental hit or strike by another person, initial encounter; F41.9 Anxiety disorder, unspecified; F31.9 Bipolar disorder, unspecified
CPT/HCPCS: 99283; 99284

== ENCOUNTER → 2022-11-28 09:09 | Outpatient (CLI) | payer MEDICAID, SELFPAY ==
[2022-11-28 10:01] LABS: Amphetamine/Metha Screen,Urine Negative ng/ml (<1000)
[2022-11-28 10:02] LABS: Barbiturates Screen,Urine Negative ng/ml (<200); Benzodiazepines Screen,Urine Negative ng/ml (<200)
[2022-11-28 10:08] LABS: Cannabinoid Screen,Urine Negative ng/ml (<50)
[2022-11-28 10:09] LABS: Cocaine Screen,Urine Negative ng/ml (<300); Methadone Screen,Urine Negative ng/ml (<300)
[2022-11-28 10:17] LABS: Opiate Screen,Urine Negative ng/ml (<300); Phencyclidine Screen,Urine Negative ng/ml (<25)
== END ==
PROVIDERS: PCP Physician Assistant
DX: Z79.899 Other long term (current) drug therapy (principal)
CPT/HCPCS: 80305

== ENCOUNTER → 2022-12-03 08:38 | Outpatient (CLI) | payer MEDICAID, SELFPAY ==
[2022-12-03 09:27] LABS: Benzodiazepines Screen,Urine Negative ng/ml (<200)
[2022-12-03 09:28] LABS: Amphetamine/Metha Screen,Urine Negative ng/ml (<1000)
[2022-12-03 09:29] LABS: Barbiturates Screen,Urine Negative ng/ml (<200); Cannabinoid Screen,Urine Negative ng/ml (<50)
[2022-12-03 09:30] LABS: Cocaine Screen,Urine Negative ng/ml (<300)
[2022-12-03 09:31] LABS: Methadone Screen,Urine Negative ng/ml (<300); Opiate Screen,Urine Negative ng/ml (<300)
[2022-12-03 09:32] LABS: Phencyclidine Screen,Urine Negative ng/ml (<25)
== END ==
PROVIDERS: PCP Physician Assistant
DX: Z79.899 Other long term (current) drug therapy (principal)
CPT/HCPCS: 80305

== ENCOUNTER → 2022-12-06 08:37 | Outpatient (CLI) | payer MEDICAID, SELFPAY ==
[2022-12-06 09:13] LABS: Amphetamine/Metha Screen,Urine Negative ng/ml (<1000)
[2022-12-06 09:14] LABS: Barbiturates Screen,Urine Negative ng/ml (<200); Benzodiazepines Screen,Urine Negative ng/ml (<200)
[2022-12-06 09:15] LABS: Cannabinoid Screen,Urine Negative ng/ml (<50); Cocaine Screen,Urine Negative ng/ml (<300)
[2022-12-06 09:17] LABS: Opiate Screen,Urine Negative ng/ml (<300); Phencyclidine Screen,Urine Negative ng/ml (<25)
[2022-12-06 09:20] LABS: Methadone Screen,Urine Negative ng/ml (<300)
== END ==
PROVIDERS: PCP Physician Assistant
DX: F41.9 Anxiety disorder, unspecified (principal); F32.9 Major depressive disorder, single episode, unspecified
CPT/HCPCS: 36415; 80305

== ENCOUNTER 2022-12-30 15:37 | Emergency (ER) | payer MEDICAID, SELFPAY ==
[2022-12-30 15:38] VITALS: BP 130/50; PULSE 113; RESP 18; TEMP 37; O2SAT 96; BMI 47.9
--- NOTE | 2022-12-30 16:04 | EXP.UTC ---
Discharge Plan Disposition Patient Disposition: Home, Self-Care Condition: Good Prescriptions Prescriptions: New fluticasone propionate [Flonase Allergy Relief] 50 mcg/actuation spray,suspension 1 - 2 spray intranasal DAILY Qty: 16 0RF Rx Instructions: administer into each nostril daily azithromycin [Zithromax Z-Juan] 250 mg tablet See Rx Instructions .ROUTE .COMPLEX 5 Days Qty: 6 0RF Rx Instructions: For 250 mg dose pack: take 500 mg today (day 1), then 250 mg for 4 days (days 2-5) No Action metformin 500 mg tablet extended release 24 hr 500 mg PO DAILY Qty: 30 2RF trazodone 50 mg tablet 50 mg PO QHS Qty: 180 0RF Rx Instructions: One or two QHS for sleep Caplyta 21 mg capsule 21 mg PO DAILY Qty: 30 2RF diclofenac sodium [Voltaren Arthritis Pain] 1 % gel 2 g topical QID Qty: 100 2RF Rx Instructions: apply to single elbow, wrist or hand; for hand includes palm/fingers/back of hand lidocaine [Lidoderm] 5 % adhesive patch,medicated 1 patch topical DAILY Qty: 30 2RF Rx Instructions: leave on most painful area for up to 12 hrs Referrals Follow up/Referrals: Marika Epstein PA [Primary Care Provider] - See instructions Activity Restrictions/Add. Instructions Additional Instructions/Restrictions: *Monitor Temp, Over the counter Motrin or Tylenol as directed/as needed Tylenol every 4 hours and Motrin every 6 hours (as long as your family doctor has told you that you can take it) for fever or pain. and straight to ER if unable to lower temp less than 101.0 after medication given *Warm salt water gargles may help to soothe the throat *Throat Lozenges? *Warm fluids like tea with honey may help to soothe the throat? *Sleep elevated *Humidifier/Vaporizer *Flonase 2 sprays in each nostril daily but be aware that it may take 2-3 days before you notice improvement Take medication as prescribed Follow up IMMEDIATELY for new or worsening symptoms or no Noticeable improvement over the next 48-72 hours. 911 for difficulty breathing or swallowing Clinical Impressions Clinical Impression: Otitis media Qualifiers: Otitis media type: unspecified Laterality: bilateral Qualified Code(s): H66.93 - Otitis media, unspecified, bilateral Instructions Patient Instructions: Middle Ear Infection, DI for Sinusitis Discharge ED Provider: Amy Khoury [facility] [place] General Stated complaint: ear pain, h/a Mode of Arrival: Ambulatory Source of Information: Patient Limitations: No Limitations Time Seen by Provider: 12/30/22 16:04 Description of Symptoms (Recalled from Triage Doc. by RN): Patient reports ear pain, temp, stomach ache, and cold sweats. HEENT Symptoms (Recalled from RN notes): Yes Resp Symptoms (Recalled from RN notes): No Skin Symptoms (Recalled from RN notes): No MS Symptoms (Recalled from RN notes): No Functional Status (Recalled from RN notes): wnl History of Present Illness Provider Complaint: Patient states that she has been having pain in both ears, sinus congestion and pressure, headache, sore throat and drainage in the back of her throat that is causing her stomach to be upset States that she is also 2 days late on her period worried that she may be Related Data Previous Rx's Medication Instructions Recorded diclofenac sodium 1 % topical gel 2 g topical QID #100 grams 10/31/22 (Voltaren Arthritis Pain) lidocaine 5 % topical patch 1 patch topical DAILY #30 ea 10/31/22 (Lidoderm) lumateperone 21 mg capsule 21 mg PO DAILY #30 caps 10/31/22 (Caplyta) metformin 500 mg tablet,extended 500 mg PO DAILY #30 tabs 10/31/22 release 24 hr trazodone 50 mg tablet 50 mg PO QHS #180 tabs 10/31/22 azithromycin 250 mg tablet See Rx Instructions PO .COMPLEX 5 12/30/22 (Zithromax Z-Juan) days #6 tabs fluticasone propionate 50 1 - 2 spray intranasal DAILY #16 12/30/22 mcg/actuation nasal grams spray,susp
[2022-12-30 16:13] LABS: UTC Pregnancy Test, Urine Negative (Negative)
[2022-12-30 16:27] VITALS: BP 130/50; PULSE 113; RESP 18; TEMP 37; O2SAT 96
== END 2022-12-30 16:27 | disposition home or self-care (01) ==
PROVIDERS: Emergency Provider Nurse Practitioner; PCP Physician Assistant
DX: H66.93 Otitis media, unspecified, bilateral (principal); J01.90 Acute sinusitis, unspecified; R11.0 Nausea; F31.9 Bipolar disorder, unspecified; F41.9 Anxiety disorder, unspecified; G47.00 Insomnia, unspecified; M54.16 Radiculopathy, lumbar region; G89.29 Other chronic pain
CPT/HCPCS: 81025; 99204; 99212; G0463

== ENCOUNTER 2023-01-23 11:02 | Emergency (ER) | payer MEDICAID, SELFPAY ==
[2023-01-23 11:03] VITALS: BP 122/79; PULSE 72; RESP 18; TEMP 36.4; O2SAT 97; BMI 44.3
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
[2023-01-23 11:31] VITALS: BP 120/72; PULSE 82; O2SAT 97
--- NOTE | 2023-01-23 11:57 | PC.NURSE ---
rounded on pt, explained to pt ER MD Amato is in with another pt and will be in with her just a soon as he can
[2023-01-23 12:01] VITALS: BP 130/73; PULSE 77; O2SAT 98
--- NOTE | 2023-01-23 12:15 | PC.NURSE ---
ER MD Amato at
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
[2023-01-23 12:31] VITALS: BP 131/75; PULSE 81; O2SAT 97
[2023-01-23 12:41] LABS: Microscopic, Urine URINE MICROSCOPIC (MICROSCOPIC)
--- NOTE | 2023-01-23 12:43 | PC.NURSE ---
pt medicated per MAR, call light in reach, curtain pulled for privacy, pt mother at BS
[2023-01-23 12:59] LABS: Appearance,Urine Clear (Clear); Color,Urine Yellow (Yellow); Glucose,Urine (UA) Negative (Negative); Protein,Urine Negative (Negative); Urine Pregnancy, HCG Qual. Negative (Negative)
[2023-01-23 13:00] LABS: Bilirubin,Urine Negative (Negative); Blood, Urine Negative (Negative); Ketones,Urine Negative (Negative); Leukocyte Esterase,Urine Negative (Negative); Nitrate,Urine Negative (Negative); Urobilinogen,Urine 0.2 EU/dl (0.2)
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
--- NOTE | 2023-01-23 13:11 | PC.NURSE ---
pt to CT via wheelchair
[2023-01-23 13:14] LABS: Amorphous Sediment,Urine 1+ /lpf; Squamous Epithelial Cell,Urine Occasional #/hpf (0-5); WBC,Urine Occasional #/hpf (0-3)
--- NOTE | 2023-01-23 14:41 | PC.NURSE ---
Pt & her mother report that they have to leave, ask to be notified with any issues, and MD was notified and stated it was ok to let her leave. Mother and pt educated of concussion syndrome and when to come back to er.
[2023-01-23 14:51] VITALS: BP 134/88; PULSE 84; RESP 16; TEMP 36.6; O2SAT 95
== END 2023-01-23 14:53 | disposition home or self-care (01) ==
PROVIDERS: Emergency Provider Emergency Medicine; PCP Physician Assistant
DX: R51.9 Headache, unspecified (principal); M25.552 Pain in left hip; M54.50 Low back pain, unspecified; Y04.8XXA Assault by other bodily force, initial encounter; F41.9 Anxiety disorder, unspecified; F31.9 Bipolar disorder, unspecified
CPT/HCPCS: 70450; 70486; 72131; 72192; 81001; 81025; 99285